=== PATIENT | male | born 1945 | race Two or more races ===

== ENCOUNTER 2020-10-14 08:54 | Inpatient (IN) | payer OTHER ==
[~2020-10-14] VITALS: Ht 182.9 cm; Wt 81.8 kg
[2020-10-14 09:53] LABS: Basophils # (auto) 0 10 ^3/uL (0-0.2); Basophils % (auto) 0.5 % (0.0-2.0); Eosinophils # (auto) 0 10 ^3/uL (0-0.8); Eosinophils % (auto) 0.1 % (0.0-7.0); Hematocrit 38.1 % (41.0-53.0); Hemoglobin 13.5 g/dL (13.5-17.5); Lymphocytes # (auto) 0.6 10 ^3/uL (0.4-5.4); Mean Corpuscular Hemoglobin 30.5 pg (28.0-32.0); Mean Corpuscular Hgb Conc. 35.5 g/dL (32.0-36.0); Mean Corpuscular Volume 85.9 fL (80.0-100.0); Monocytes # (auto) 0.2 10 ^3/uL (0-1.3); Monocytes % (auto) 6.3 % (0.0-12.0); Neutrophils % (auto) 78.1 % (37.0-80.0); Nucleated Red Blood Cells % 0.1 %; Red Blood Cells 4.44 10^6/uL (4.5-5.90); Red Cell Distribution Width 14.2 % (11.8-14.3); White Blood Cell 3.9 10^3/uL (4.4-10.8)
[2020-10-14 10:09] LABS: INR 0.97 (0.9-1.15); Partial Thromboplastin Time 28.2 sec (23.6-33.0)
[2020-10-14 10:12] LABS: Albumin 2.6 g/dL (3.4-5.0); Anion Gap 9 (5-15); Blood Urea Nitrogen 28 mg/dL (7-18); Calcium 9.4 mg/dL (8.5-10.1); Carbon Dioxide 21 mmol/L (21-32); Chloride 112 mmol/L (98-107); Glucose 113 mg/dL (74-106); Potassium 3.9 mmol/L (3.5-5.1); Sodium 142 mmol/L (136-145)
[2020-10-14 10:17] LABS: Alanine Aminotransferase 22 U/L (16-61); Alkaline Phosphatase 85 U/L (45-117); Aspartate Aminotransferase 39 U/L (15-37); BUN/Creatinine Ratio 30.8; Bilirubin, Total 0.4 mg/dL (0.2-1.0); GFR African American 104 mL/min; GFR Non-African American 86 mL/min; Total Protein 6.3 g/dL (6.4-8.2)
[2020-10-14] MEDS ORDERED: ACETAMINOPHEN 650 mg PER 20.3 mL UD ONE (12:26)
[2020-10-14] MEDS ORDERED: ACETAMINOPHEN 650 mg PER 20.3 mL UD PO ONE (12:30)
[2020-10-14] MEDS ORDERED: NITROGLYCERIN 0.4 MG SL TAB SL PRN (16:00)
[2020-10-14] MEDS ORDERED: MORPHINE SULFATE INJECTION 2 MG/ML SYRG IV PRN (16:00)
[2020-10-14] MEDS ORDERED: ACETAMINOPHEN 500 MG TAB PO PRN (16:00)
[2020-10-14] MEDS ORDERED: LORazepam 2MG/ML-1ML VIAL IV PRN (16:00)
[2020-10-14] MEDS: CHOLECALCIFEROL (VITD3) 2,000 UNIT CAP/TAB PO SCH (16:19)
[2020-10-14] MEDS: ASCORBIC ACID 1,000 MG TAB PO SCH (16:19)
[2020-10-14] MEDS: IVERMECTIN 3 MG TAB PO SCH (16:20)
[2020-10-14] MEDS: cefTRIAXone 1GM/50ML D5W 50 ML IV ONE ×2 (16:29→17:05)
[2020-10-14] MEDS: AZITHROMYCIN 500MG/ 250ML 250 ML IV ONE ×2 (16:30→16:58)
[2020-10-14] MEDS: SODIUM CHLORIDE 0.9% 1,000 ML IV ONE ×2 (16:30→17:05)
[2020-10-14] MEDS: BUDESONIDE (INHALATION) 180 MCG IH IN SCH (18:41)
[2020-10-14 20:41] VITALS: BP 119/69
[2020-10-14] MEDS: metroNIDAZOLE 500MG/100ML 100 ML IV SCH (22:00)
[2020-10-15] MEDS: ALBUTEROL SULF HFA 90MCG INH 200DOSE IN PRN (02:49)
[2020-10-15] MEDS: metroNIDAZOLE 500MG/100ML 100 ML IV SCH ×2 (04:37→06:00)
[2020-10-15] MEDS: ENOXAPARIN SOD 40 MG/0.4 ML SYRINGE SC SCH ×3 (04:37→22:12)
[2020-10-15] MEDS: BUDESONIDE (INHALATION) 180 MCG IH IN SCH ×2 (06:05→22:00)
[2020-10-15 08:57] LABS: Urine Bacteria NONE SEEN /hpf (None Seen); Urine Blood 3+ /uL (Negative); Urine WBC 924 /hpf (0 - 3); Urine WBC Clumps PRESENT /hpf (None Seen)
[2020-10-15 09:15] LABS: Urine Specific Gravity 1.022 (1.001-1.035)
[2020-10-15] MEDS ORDERED: MORPHINE SULFATE INJECTION 2 MG/ML SYRG IV PRN (10:30)
[2020-10-15] MEDS: cefTRIAXone 1GM/50ML D5W 50 ML IV SCH (10:52)
[2020-10-15] MEDS: ASCORBIC ACID 1,000 MG TAB PO SCH (10:52)
[2020-10-15] MEDS: CHOLECALCIFEROL (VITD3) 2,000 UNIT CAP/TAB PO SCH (10:52)
[2020-10-15] MEDS: IVERMECTIN 3 MG TAB PO SCH (10:52)
[2020-10-15] MEDS: AZITHROMYCIN 500MG/ 250ML 250 ML IV SCH (10:52)
[2020-10-15] MEDS ORDERED: IOHEXOL 350 MG/ML 100ML IJ ONE (12:01)
[2020-10-15] MEDS ORDERED: DexAMETHasone SOD PHOS 10MG/1ML VIAL INJ IV ONE (12:15)
[2020-10-15] MEDS ORDERED: REMDESIVIR PER PHARMACY 0 ML IV SCH (12:15)
[2020-10-15] MEDS ORDERED: DEXTROSE (50%) 50ML SYRG IV PRN (12:15)
[2020-10-15] MEDS ORDERED: REMDESIVIR 200 MG in NS 210ml LOADING DOSE ADULT IV ONE (15:00)
[2020-10-15] MEDS: InsuLIN REG 1unit/0.01ml Soln (100units/ml) SC SCH (18:00)
[2020-10-15] MEDS: ACCU-CHEK COMFORT CURVE STRIP VI SCH (18:00)
[2020-10-15] MEDS: VANCOMYCIN HCL 125MG/5ML ORAL SOL PO SCH ×2 (18:00→22:11)
[2020-10-15] MEDS: FLORASTOR (S. BOULARDII) 250 MG CAP PO SCH (22:11)
[2020-10-16] MEDS: ACCU-CHEK COMFORT CURVE STRIP VI SCH ×5 (01:34→23:55)
[2020-10-16 05:00] VITALS: BP 158/94
[2020-10-16] MEDS: InsuLIN REG 1unit/0.01ml Soln (100units/ml) SC SCH ×5 (06:00→23:56)
[2020-10-16 06:28] LABS: Basophils # (auto) 0 10 ^3/uL (0-0.2); Eosinophils # (auto) 0 10 ^3/uL (0-0.8); Lymphocytes # (auto) 0.8 10 ^3/uL (0.4-5.4); Monocytes # (auto) 0.3 10 ^3/uL (0-1.3); Nucleated Red Blood Cells % 0.1 %; Red Cell Distribution Width 14.3 % (11.8-14.3); White Blood Cell 4.1 10^3/uL (4.4-10.8)
[2020-10-16 06:31] LABS: Basophils % (auto) 0.1 % (0.0-2.0); Hematocrit 34.7 % (41.0-53.0); Hemoglobin 12.5 g/dL (13.5-17.5); Lymphocytes % (auto) 18.7 % (10.0-50.0); Mean Corpuscular Hemoglobin 30.6 pg (28.0-32.0); Monocytes % (auto) 6.9 % (0.0-12.0); Neutrophils # (auto) 3.1 10 ^3/uL (1.6-8.6); Neutrophils % (auto) 74.3 % (37.0-80.0); Red Blood Cells 4.08 10^6/uL (4.5-5.90)
[2020-10-16 06:38] LABS: INR 0.99 (0.9-1.15)
[2020-10-16 06:55] LABS: Albumin 2.3 g/dL (3.4-5.0); BUN/Creatinine Ratio 42.7; Calcium 9.5 mg/dL (8.5-10.1); Magnesium 2.2 mg/dL (1.6-2.6); Potassium 3.5 mmol/L (3.5-5.1)
[2020-10-16 07:04] LABS: Bilirubin, Total 0.4 mg/dL (0.2-1.0); CRP High Sensitivity 4.6 mg/dL (< 0.3)
[2020-10-16 08:00] VITALS: BP 137/79
[2020-10-16] MEDS: ALBUTEROL SULF HFA 90MCG INH 200DOSE IN PRN ×2 (08:01→22:08)
[2020-10-16] MEDS: BUDESONIDE (INHALATION) 180 MCG IH IN SCH ×2 (08:01→22:09)
[2020-10-16] MEDS: cefTRIAXone 1GM/50ML D5W 50 ML IV SCH (08:44)
[2020-10-16] MEDS: DexAMETHasone SOD PHOS 10MG/1ML VIAL INJ IV SCH (08:44)
[2020-10-16] MEDS: VANCOMYCIN HCL 125MG/5ML ORAL SOL PO SCH ×2 (08:44→12:09)
[2020-10-16] MEDS: FLORASTOR (S. BOULARDII) 250 MG CAP PO SCH ×2 (08:45→21:56)
[2020-10-16] MEDS: ZINC SULFATE 220mg CAP or TAB PO SCH (08:45)
[2020-10-16] MEDS: IVERMECTIN 3 MG TAB PO SCH (08:46)
[2020-10-16] MEDS: CHOLECALCIFEROL (VITD3) 2,000 UNIT CAP/TAB PO SCH (08:46)
[2020-10-16] MEDS: ASCORBIC ACID 1,000 MG TAB PO SCH (08:46)
[2020-10-16] MEDS: ENOXAPARIN SOD 40 MG/0.4 ML SYRINGE SC SCH ×2 (08:47→21:56)
[2020-10-16 08:48] VITALS: BP 137/79
[2020-10-16] MEDS ORDERED: LISI2.5T47 PO (11:29)
[2020-10-16] MEDS ORDERED: METO25TA5 PO (11:29)
[2020-10-16] MEDS ORDERED: HYDR1TAB97 PO (11:29)
[2020-10-16] MEDS: AZITHROMYCIN 500MG/ 250ML 250 ML IV SCH (11:43)
[2020-10-16 13:00] VITALS: BP 126/68
[2020-10-16] MEDS: REMDESIVIR 100mg 100 MG in SODIUM CHL 0.9% 230 ML IV SCH (15:27)
[2020-10-16 17:00] VITALS: BP 126/70
[2020-10-16] MEDS: METOPROLOL TARTRATE 25 MG TAB PO SCH (21:56)
[2020-10-16 22:00] VITALS: BP 135/78
[2020-10-17 04:30] VITALS: BP 142/78
[2020-10-17] MEDS: ACCU-CHEK COMFORT CURVE STRIP VI SCH ×3 (05:51→18:00)
[2020-10-17] MEDS: InsuLIN REG 1unit/0.01ml Soln (100units/ml) SC SCH ×3 (05:51→18:00)
[2020-10-17] MEDS: ALBUTEROL SULF HFA 90MCG INH 200DOSE IN PRN ×2 (07:14→22:41)
[2020-10-17] MEDS: BUDESONIDE (INHALATION) 180 MCG IH IN SCH ×2 (07:14→22:41)
[2020-10-17 09:00] VITALS: BP 148/58
[2020-10-17] MEDS: cefTRIAXone 1GM/50ML D5W 50 ML IV SCH (09:25)
[2020-10-17] MEDS: DexAMETHasone SOD PHOS 10MG/1ML VIAL INJ IV SCH (09:25)
[2020-10-17] MEDS: ZINC SULFATE 220mg CAP or TAB PO SCH (09:26)
[2020-10-17] MEDS: FLORASTOR (S. BOULARDII) 250 MG CAP PO SCH ×2 (09:26→22:00)
[2020-10-17] MEDS: METOPROLOL TARTRATE 25 MG TAB PO SCH ×2 (09:27→22:00)
[2020-10-17] MEDS: CHOLECALCIFEROL (VITD3) 2,000 UNIT CAP/TAB PO SCH (09:28)
[2020-10-17] MEDS: ASCORBIC ACID 1,000 MG TAB PO SCH (09:28)
[2020-10-17] MEDS: IVERMECTIN 3 MG TAB PO SCH (09:28)
[2020-10-17] MEDS: ENOXAPARIN SOD 40 MG/0.4 ML SYRINGE SC SCH ×2 (09:28→22:00)
[2020-10-17] MEDS: AZITHROMYCIN 500MG/ 250ML 250 ML IV SCH (10:20)
[2020-10-17 13:00] VITALS: BP 135/78
[2020-10-17] MEDS ORDERED: POTASSIUM CHL 20 Meq TABLET PO ONE (14:00)
[2020-10-17] MEDS: REMDESIVIR 100mg 100 MG in SODIUM CHL 0.9% 230 ML IV SCH (14:55)
[2020-10-17 17:00] VITALS: BP 151/79
[2020-10-17 22:00] VITALS: BP 138/83
[2020-10-18 05:00] VITALS: BP 145/76
[2020-10-18] MEDS: InsuLIN REG 1unit/0.01ml Soln (100units/ml) SC SCH ×5 (06:00→23:38)
[2020-10-18] MEDS: ACCU-CHEK COMFORT CURVE STRIP VI SCH ×5 (06:00→23:35)
[2020-10-18 06:25] LABS: Basophils # (auto) 0 10 ^3/uL (0-0.2); Basophils % (auto) 0.3 % (0.0-2.0); Eosinophils # (auto) 0 10 ^3/uL (0-0.8); Hemoglobin 11.9 g/dL (13.5-17.5); Lymphocytes # (auto) 0.9 10 ^3/uL (0.4-5.4); Lymphocytes % (auto) 17.9 % (10.0-50.0); Mean Corpuscular Hemoglobin 29.8 pg (28.0-32.0); Mean Corpuscular Volume 85.3 fL (80.0-100.0); Monocytes # (auto) 0.4 10 ^3/uL (0-1.3); Neutrophils # (auto) 3.7 10 ^3/uL (1.6-8.6); Neutrophils % (auto) 73.8 % (37.0-80.0); Nucleated Red Blood Cells % 0.1 %; Red Blood Cells 3.98 10^6/uL (4.5-5.90); Red Cell Distribution Width 14.2 % (11.8-14.3)
[2020-10-18 06:42] LABS: Potassium 3.5 mmol/L (3.5-5.1)
[2020-10-18 06:51] LABS: BUN/Creatinine Ratio 45.1; Calcium 8.9 mg/dL (8.5-10.1)
[2020-10-18 07:00] LABS: CRP High Sensitivity 1.69 mg/dL (< 0.3)
[2020-10-18] MEDS: ALBUTEROL SULF HFA 90MCG INH 200DOSE IN PRN ×2 (07:59→22:44)
[2020-10-18] MEDS: BUDESONIDE (INHALATION) 180 MCG IH IN SCH ×2 (07:59→22:44)
[2020-10-18 08:25] VITALS: BP 147/90
[2020-10-18 08:47] VITALS: BP 147/90
[2020-10-18] MEDS: FLORASTOR (S. BOULARDII) 250 MG CAP PO SCH ×2 (10:00→21:25)
[2020-10-18] MEDS: cefTRIAXone 1GM/50ML D5W 50 ML IV SCH (11:00)
[2020-10-18] MEDS: DexAMETHasone SOD PHOS 10MG/1ML VIAL INJ IV SCH (11:25)
[2020-10-18] MEDS: ZINC SULFATE 220mg CAP or TAB PO SCH (11:25)
[2020-10-18] MEDS: ASCORBIC ACID 1,000 MG TAB PO SCH (11:26)
[2020-10-18] MEDS: CHOLECALCIFEROL (VITD3) 2,000 UNIT CAP/TAB PO SCH (11:26)
[2020-10-18] MEDS: IVERMECTIN 3 MG TAB PO SCH (11:26)
[2020-10-18] MEDS: METOPROLOL TARTRATE 25 MG TAB PO SCH ×2 (11:26→21:26)
[2020-10-18] MEDS: ENOXAPARIN SOD 40 MG/0.4 ML SYRINGE SC SCH ×2 (11:26→21:26)
[2020-10-18] MEDS: AZITHROMYCIN 500MG/ 250ML 250 ML IV SCH (12:02)
[2020-10-18 13:00] VITALS: BP 138/80
[2020-10-18] MEDS: REMDESIVIR 100mg 100 MG in SODIUM CHL 0.9% 230 ML IV SCH (15:31)
[2020-10-18 17:00] VITALS: BP 148/85
[2020-10-18 22:04] VITALS: BP 142/84
[2020-10-19 05:27] VITALS: BP 160/94
[2020-10-19] MEDS: InsuLIN REG 1unit/0.01ml Soln (100units/ml) SC SCH ×4 (05:40→23:27)
[2020-10-19] MEDS: ACCU-CHEK COMFORT CURVE STRIP VI SCH ×4 (05:41→23:27)
[2020-10-19 06:23] LABS: Basophils # (auto) 0 10 ^3/uL (0-0.2); Basophils % (auto) 0.5 % (0.0-2.0); Eosinophils # (auto) 0 10 ^3/uL (0-0.8); Eosinophils % (auto) 0.1 % (0.0-7.0); Hematocrit 37.8 % (41.0-53.0); Hemoglobin 12.8 g/dL (13.5-17.5); Lymphocytes % (auto) 10.3 % (10.0-50.0); Mean Corpuscular Hemoglobin 29.4 pg (28.0-32.0); Mean Corpuscular Hgb Conc. 33.9 g/dL (32.0-36.0); Mean Corpuscular Volume 86.6 fL (80.0-100.0); Monocytes # (auto) 0.6 10 ^3/uL (0-1.3); Monocytes % (auto) 6.6 % (0.0-12.0); Neutrophils # (auto) 7.6 10 ^3/uL (1.6-8.6); Neutrophils % (auto) 82.5 % (37.0-80.0); Nucleated Red Blood Cells % 0.3 %; Red Blood Cells 4.36 10^6/uL (4.5-5.90); Red Cell Distribution Width 14.1 % (11.8-14.3); White Blood Cell 9.2 10^3/uL (4.4-10.8)
[2020-10-19] MEDS: BUDESONIDE (INHALATION) 180 MCG IH IN SCH ×2 (06:48→23:06)
[2020-10-19] MEDS: ALBUTEROL SULF HFA 90MCG INH 200DOSE IN PRN ×2 (06:49→23:11)
[2020-10-19 08:00] VITALS: BP 140/92
[2020-10-19] MEDS: cefTRIAXone 1GM/50ML D5W 50 ML IV SCH (09:40)
[2020-10-19] MEDS: CHOLECALCIFEROL (VITD3) 2,000 UNIT CAP/TAB PO SCH (10:00)
[2020-10-19] MEDS: FLORASTOR (S. BOULARDII) 250 MG CAP PO SCH ×2 (10:00→21:12)
[2020-10-19] MEDS: IVERMECTIN 3 MG TAB PO SCH (10:00)
[2020-10-19] MEDS: DexAMETHasone SOD PHOS 10MG/1ML VIAL INJ IV SCH (10:00)
[2020-10-19] MEDS: ZINC SULFATE 220mg CAP or TAB PO SCH (10:00)
[2020-10-19] MEDS: ASCORBIC ACID 1,000 MG TAB PO SCH (10:00)
[2020-10-19] MEDS: METOPROLOL TARTRATE 25 MG TAB PO SCH ×2 (10:30→21:13)
[2020-10-19] MEDS: AZITHROMYCIN 500MG/ 250ML 250 ML IV SCH (10:39)
[2020-10-19] MEDS: REMDESIVIR 100mg 100 MG in SODIUM CHL 0.9% 230 ML IV SCH (15:30)
[2020-10-19] MEDS ORDERED: POTASSIUM CHL 10 Meq TABLET PO ONE (15:30)
[2020-10-19 17:00] VITALS: BP 160/89
[2020-10-19] MEDS: HYDROcodone-ACET 5/325MG TAB PO PRN (21:13)
[2020-10-19 22:00] VITALS: BP 145/86
[2020-10-20 05:00] VITALS: BP 150/88
[2020-10-20 05:22] VITALS: BP 150/88
[2020-10-20] MEDS: InsuLIN REG 1unit/0.01ml Soln (100units/ml) SC SCH ×4 (06:00→23:58)
[2020-10-20] MEDS: ACCU-CHEK COMFORT CURVE STRIP VI SCH ×4 (06:10→23:58)
[2020-10-20] MEDS: ALBUTEROL SULF HFA 90MCG INH 200DOSE IN PRN ×2 (07:13→21:57)
[2020-10-20] MEDS: BUDESONIDE (INHALATION) 180 MCG IH IN SCH ×2 (07:13→21:57)
[2020-10-20 09:00] VITALS: BP 156/80
[2020-10-20] MEDS: DexAMETHasone SOD PHOS 10MG/1ML VIAL INJ IV SCH (09:47)
[2020-10-20] MEDS: cefTRIAXone 1GM/50ML D5W 50 ML IV SCH (09:47)
[2020-10-20] MEDS: ZINC SULFATE 220mg CAP or TAB PO SCH (09:48)
[2020-10-20] MEDS: ASCORBIC ACID 1,000 MG TAB PO SCH (09:48)
[2020-10-20] MEDS: CHOLECALCIFEROL (VITD3) 2,000 UNIT CAP/TAB PO SCH (09:48)
[2020-10-20] MEDS: FLORASTOR (S. BOULARDII) 250 MG CAP PO SCH ×2 (09:48→22:10)
[2020-10-20] MEDS: IVERMECTIN 3 MG TAB PO SCH (09:48)
[2020-10-20] MEDS: ENOXAPARIN SOD 40 MG/0.4 ML SYRINGE SC SCH (09:49)
[2020-10-20] MEDS: METOPROLOL TARTRATE 25 MG TAB PO SCH ×2 (10:03→22:10)
[2020-10-20 13:00] VITALS: BP 158/74
[2020-10-20 17:00] VITALS: BP 149/84
[2020-10-20 22:00] VITALS: BP 128/70
[2020-10-21 06:00] VITALS: BP 150/82
[2020-10-21] MEDS: ACCU-CHEK COMFORT CURVE STRIP VI SCH ×3 (06:00→18:11)
[2020-10-21] MEDS: InsuLIN REG 1unit/0.01ml Soln (100units/ml) SC SCH ×3 (06:00→18:17)
[2020-10-21] MEDS: BUDESONIDE (INHALATION) 180 MCG IH IN SCH ×2 (07:13→21:43)
[2020-10-21] MEDS: ALBUTEROL SULF HFA 90MCG INH 200DOSE IN PRN ×2 (07:13→21:43)
[2020-10-21 09:00] VITALS: BP 130/79
[2020-10-21] MEDS: cefTRIAXone 1GM/50ML D5W 50 ML IV SCH (09:00)
[2020-10-21] MEDS: HYDROcodone-ACET 5/325MG TAB PO PRN (09:00)
[2020-10-21] MEDS: DexAMETHasone SOD PHOS 10MG/1ML VIAL INJ IV SCH (09:44)
[2020-10-21] MEDS: FLORASTOR (S. BOULARDII) 250 MG CAP PO SCH ×2 (09:46→22:30)
[2020-10-21] MEDS: ZINC SULFATE 220mg CAP or TAB PO SCH (09:46)
[2020-10-21] MEDS: ASCORBIC ACID 1,000 MG TAB PO SCH (09:49)
[2020-10-21] MEDS: METOPROLOL TARTRATE 25 MG TAB PO SCH ×2 (09:49→22:30)
[2020-10-21] MEDS: CHOLECALCIFEROL (VITD3) 2,000 UNIT CAP/TAB PO SCH (09:49)
[2020-10-21] MEDS: ENOXAPARIN SOD 40 MG/0.4 ML SYRINGE SC SCH (09:57)
[2020-10-21 13:00] VITALS: BP 120/66
[2020-10-21 17:00] VITALS: BP 136/73
[2020-10-21 22:00] VITALS: BP 149/77
[2020-10-22 05:00] VITALS: BP 147/90
[2020-10-22] MEDS: InsuLIN REG 1unit/0.01ml Soln (100units/ml) SC SCH ×3 (06:00→11:58)
[2020-10-22] MEDS: ACCU-CHEK COMFORT CURVE STRIP VI SCH ×3 (06:00→11:58)
[2020-10-22 06:45] LABS: BUN/Creatinine Ratio 41.8; Calcium 8.3 mg/dL (8.5-10.1); Magnesium 2.2 mg/dL (1.6-2.6); Potassium 3.4 mmol/L (3.5-5.1)
[2020-10-22 06:49] LABS: Hematocrit 34.4 % (41.0-53.0); Hemoglobin 12.1 g/dL (13.5-17.5); Mean Corpuscular Hemoglobin 30.3 pg (28.0-32.0); Mean Corpuscular Hgb Conc. 35.1 g/dL (32.0-36.0); Mean Corpuscular Volume 86.3 fL (80.0-100.0); Red Blood Cells 3.98 10^6/uL (4.5-5.90); Red Cell Distribution Width 14.3 % (11.8-14.3); White Blood Cell 7.3 10^3/uL (4.4-10.8)
[2020-10-22 07:00] LABS: CRP High Sensitivity 1.64 mg/dL (< 0.3)
[2020-10-22] MEDS: BUDESONIDE (INHALATION) 180 MCG IH IN SCH ×2 (07:09→22:09)
[2020-10-22] MEDS: ALBUTEROL SULF HFA 90MCG INH 200DOSE IN PRN ×2 (07:09→22:09)
[2020-10-22 07:24] LABS: Basophils % (manual) 0 (0.0-2.0); Blast Cells 0; Eosinophils % (manual) 0 (0-7); Metamyelocytes % 0; Myelocytes % 0; Promyelocytes % 0; Reactive Lymphocytes 0
[2020-10-22 08:30] VITALS: BP 145/84
[2020-10-22 09:26] LABS: Band Neutrophils % (manual) 2; Lymphocytes % (manual) 10 (10.0-50.0); Monocytes % (manual) 9 (0-12)
[2020-10-22] MEDS: FLORASTOR (S. BOULARDII) 250 MG CAP PO SCH ×3 (10:32→23:01)
[2020-10-22] MEDS: ZINC SULFATE 220mg CAP or TAB PO SCH (10:32)
[2020-10-22] MEDS: DexAMETHasone 4 MG TAB PO SCH (10:32)
[2020-10-22] MEDS: METOPROLOL TARTRATE 25 MG TAB PO SCH ×2 (10:33→23:01)
[2020-10-22] MEDS: ASCORBIC ACID 1,000 MG TAB PO SCH (10:38)
[2020-10-22] MEDS: CHOLECALCIFEROL (VITD3) 2,000 UNIT CAP/TAB PO SCH (10:38)
[2020-10-22] MEDS: ENOXAPARIN SOD 40 MG/0.4 ML SYRINGE SC SCH (10:38)
[2020-10-22] MEDS ORDERED: POTASSIUM CHL 20 Meq TABLET PO ONE (15:45)
[2020-10-22] MEDS ORDERED: PANT40TA2 PO (16:37)
[2020-10-22] MEDS ORDERED: ZINC220T6 PO (16:37)
[2020-10-22] MEDS ORDERED: ASCO10003 PO (16:37)
[2020-10-22] MEDS ORDERED: CHOL20007 PO (16:37)
[2020-10-22] MEDS ORDERED: ASPI-378 PO (16:37)
[2020-10-22] MEDS ORDERED: BUDE2SUS3 IN (16:37)
[2020-10-22] MEDS ORDERED: ALBUAER3 IN (16:37)
[2020-10-22] MEDS ORDERED: DEX4T PO (16:37)
[2020-10-22 16:46] LABS: INR 1.05 (0.9-1.15)
[2020-10-22 17:00] VITALS: BP 147/69
[2020-10-22] MEDS: POTASSIUM CHL 20MEQ/100ML 100 ML IV SCH (21:57)
[2020-10-22 22:03] VITALS: BP 159/75
[2020-10-22] MEDS: HYDROcodone-ACET 5/325MG TAB PO PRN (23:01)
[2020-10-23] MEDS: POTASSIUM CHL 20MEQ/100ML 100 ML IV SCH (01:12)
[2020-10-23 05:03] VITALS: BP 157/90
[2020-10-23 08:00] VITALS: BP 131/85
[2020-10-23] MEDS: BUDESONIDE (INHALATION) 180 MCG IH IN SCH (09:44)
[2020-10-23] MEDS: ALBUTEROL SULF HFA 90MCG INH 200DOSE IN PRN (09:45)
[2020-10-23] MEDS: DexAMETHasone 4 MG TAB PO SCH (09:57)
[2020-10-23] MEDS: FLORASTOR (S. BOULARDII) 250 MG CAP PO SCH (09:57)
[2020-10-23] MEDS: METOPROLOL TARTRATE 25 MG TAB PO SCH (09:57)
[2020-10-23] MEDS: ASCORBIC ACID 1,000 MG TAB PO SCH (09:57)
[2020-10-23] MEDS: CHOLECALCIFEROL (VITD3) 2,000 UNIT CAP/TAB PO SCH (09:57)
[2020-10-23] MEDS: ZINC SULFATE 220mg CAP or TAB PO SCH (09:57)
[2020-10-23] MEDS: ENOXAPARIN SOD 40 MG/0.4 ML SYRINGE SC SCH (09:58)
[2020-10-23 13:00] VITALS: BP 144/72
[2020-10-23 15:38] VITALS: BP 144/72
[2020-10-23 17:00] VITALS: BP 133/75
== END 2020-10-23 17:50 | disposition hospice, home (50) | DRG 871 ==
LOC: ER 08:54 → EDBD 08:54 → TELE 15:50 → TELE-EAST 10-15 23:00
PROVIDERS: ADMIT Nurse Practitioner Acute Care; ATTEND Internal Medicine
PROC: XW033E5 Introduction of Remdesivir Anti-infective into Peripheral Vein, Percutaneous Approach, New Technology Group 5 (ICD-10-PCS; principal; 2020-10-15)
DX: A41.89 Other specified sepsis (principal); U07.1 COVID-19; G93.41 Metabolic encephalopathy; J12.82 Pneumonia due to coronavirus disease 2019; J96.00 Acute respiratory failure, unspecified whether with hypoxia or hypercapnia; C85.90 Non-Hodgkin lymphoma, unspecified, unspecified site; J44.0 Chronic obstructive pulmonary disease with (acute) lower respiratory infection; J44.1 Chronic obstructive pulmonary disease with (acute) exacerbation; Z66 Do not resuscitate; I10 Essential (primary) hypertension; E87.6 Hypokalemia; G89.29 Other chronic pain; R31.0 Gross hematuria; Z85.46 Personal history of malignant neoplasm of prostate; D89.839 Cytokine release syndrome, grade unspecified
CPT/HCPCS: 36415; 70450; 71045; 74176; 80048; 80053; 81001; 82306; 82728; 82962; 83036; 83605; 83615; 83735; 83880; 84132; 84154; 84484; 85007; 85025; 85027; 85379; 85610; 85730; 86141; 87040; 87086; 87088; 87426; 93005; 94640; 97110; 97163; 99291; G0378; J0696; J1100; J1815; J3480; J3490